=== PATIENT | male | born 1980 | race Caucasian/White ===

== ENCOUNTER 2017-10-17 07:33 | Emergency (ER) | payer BC, SELFPAY ==
[2017-10-17 07:35] VITALS: BP 153/83; PULSE 83; RESP 14; TEMP 36.9; O2SAT 99; BMI 29.5
--- NOTE | 2017-10-17 08:16 | ED_ITS ---
HPI - Ear Problem General Chief complaint: Ear Stated complaint: EAR DAMAGE Source: patient Mode of arrival: ambulatory Limitations: no limitations History of Present Illness HPI Narrative: Patient presents to the emergency department today with a chief complaint of right ear pain after insertion of a Q-tip. He has decreased ability to hear and had some drainage of blood. He denies any fever, chills nor nausea or vomiting. MD Complaint: ear pain, ear discharge and decreased hearing Location: right ear Duration: constant Severity: moderate Exacerbating factors: nothing Context: recent illness Discharge from ear: yes - bloody Related Data Home Medications Medication Instructions Recorded Confirmed [Ibuprofen] 800 mg PO PRN PRN #0 06/14/17 10/17/17 Previous Rx's Medication Instructions Recorded lisinopril 20 mg PO QDAY #90 tab 06/14/17 hydrocodone-acetaminophen 1 tab PO Q4-6H PRN #10 tab 10/17/17 Allergies Allergy/AdvReac Type Severity Reaction Status Date / Time No Known Drug Allergies Allergy Verified 10/17/17 07:37 Review of Systems Review of Systems All systems reviewed & are unremarkable except as noted in HPI and below Constitutional Denies chills, Denies fever(s), Denies lethargy and Denies weakness Eyes Denies change in vision, Denies eye discharge, Denies irritation and Denies loss of vision ENT Ears, Nose, Mouth, and Throat: Reports ear discharge and Reports otalgia Cardiovascular Denies chest pain, Denies irregular heart rhythm, Denies lightheadedness, Denies palpitations and Denies orthopnea Gastrointestinal Gastrointestinal: Denies abdominal pain, Denies change in bowel habits, Denies diarrhea, Denies nausea and Denies vomiting Neurologic Denies loss of vision and Denies weakness Endocrine Denies palpitations Hematologic/Lymphatic Denies easy bruising [facility] Family History Brother Essential hypertension Type 2 diabetes mellitus Mother Essential hypertension Social History Smoking Status: Never smoker Exam Const General: cooperative and well developed Nutritional Appearance: well nourished Orientation: alert, awake, oriented x3 and not confused HENMT Head: normal to inspection Ears: TM normal on the left, EAC abnormal (blood in canal) and unable to visualize TM Resp Effort & Inspection: normal respiratory effort, able to speak in complete sentences, no respiratory distress and no use of accessory muscles Auscultation: clear to auscultation bilaterally, no rales, no rhonchi and no wheezes Course Last Vital Signs Temp 98.4 F 10/17/17 07:35 Pulse 83 10/17/17 07:35 Resp 14 10/17/17 07:35 BP 153/83 H 10/17/17 07:35 Pulse Ox 99 10/17/17 07:35 Discharge Plan Departure Patient Disposition: Home, Self-Care Clinical Impression: Ruptured tympanic membrane Instructions: DI for Tympanic Membrane Perforation-Adult Activity Restrictions/Additional Instructions: Do not insert anything in your ear Call ENT today to schedule an appointment, be sure to tell them you were seen in the Emergency Department and Dr. Frank wants you to be seen for a TRAUMATIC RUPTURED EAR DRUM You have been prescribed narcotic medications. While on these medications you cannot drive or operate heavy machinery. Additionally you cannot sign legal documents or perform any duties such as this. 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 Please understand that we cannot provide further refills of narcotics or controlled substances through the ED and your pain management will need to be through your Primary Care Provider Prescriptions: New hydrocodone-acetaminophen 5-325 mg tablet 1 tab PO Q4-6H PRN (Reason: pain) Qty: 10 RF: 0 No Action [Ibuprofen] 800 mg PO PRN PRN (Reason: Pain (Scale Score 4-6)) Qty: 0 RF: 0 lisinopril 20 MG tablet 20 mg PO QDAY Qty: 90 RF: 3 Referrals: Tamir Varela MD [Physician] - (Seen in ED on morning of 10/17 for traumatic rupture of R TM after insertion of Q tip. Blood in canal, cannot visualize canal lac or actual TM due to blood. )
== END 2017-10-17 08:26 | disposition home or self-care (01) ==
PROVIDERS: Emergency Provider Emergency Medicine; Family Provider Family Medicine; PCP Family Medicine
DX: H72.90 Unspecified perforation of tympanic membrane, unspecified ear (principal)
CPT/HCPCS: 99282

== ENCOUNTER 2018-03-14 04:41 | Emergency (ER) | payer OTHER, SELFPAY ==
[2018-03-14 04:51] VITALS: BP 153/111; PULSE 76; RESP 18; TEMP 36.8; O2SAT 99; BMI 27.1
--- NOTE | 2018-03-14 04:51 | DI.US.S_ITS ---
PROCEDURE: US ABDOMEN COMPLETE INDICATIONS: epigastric pain TECHNIQUE: Real-time scanning was performed of the abdominal and retroperitoneal organs, with image documentation. COMPARISON: [facility], CT, CHEST/ABD/PEL WITH CONTRAST, 08/07/2016, 11:56. FINDINGS: Liver: Liver is diffusely increased in echogenicity. No focal hepatic abnormalities identified. Normal hepatic size. Gallbladder: No gallstones identified. Normal gallbladder wall. No pericholecystic fluid. Negative sonographic Burroughs sign. Biliary ducts: Intrahepatic bile ducts are non-dilated. Extrahepatic bile duct caliber measures 6.2 mm. Normal is 6-7 mm or less in diameter, or 10 mm or less post-cholecystectomy. Pancreas: Visualized portions of the pancreas are sonographically normal. Spleen: Spleen is normal in size and homogeneous in echotexture. Kidneys: Kidneys are normal in size and echotexture. Right kidney measures 11.1 cm long; left kidney measures 10.7 cm long. No hydronephrosis or nephrolithiasis. No solid masses. Aorta: Visualized aorta is normal in caliber at less than 3 cm. Iliacs: Proximal common iliac arteries are normal in caliber at less than 2.5 cm. IVC: Intrahepatic inferior vena cava is patent. Miscellaneous: No free abdominal fluid. IMPRESSION: 1. Increased hepatic echogenicity noted possibly related to hepatic steatosis but other sources of hepatocellular disease cannot be excluded. Recommend clinical correlation. 2. Extrahepatic bile duct upper limits of normal in caliber. Note: These findings are concordant with the preliminary interpretation. Dictated by: Doron LOPEZ Interpreted: Anuradha Mcgarry MD on 03/14/2018 at 8:51 Approved by: Anuradha Mcgarry M.D. on 03/14/2018 at 15:37
--- NOTE | 2018-03-14 05:00 | ED_ITS ---
HPI - Abdominal Pain General Chief Complaint: Abdominal Pain Stated Complaint: Abd Pain Time Seen by Provider: 03/14/18 04:42 Source: patient Mode of arrival: ambulatory Limitations: no limitations History of Present Illness HPI narrative: 37-year-old daily drinker presents with a chief complaint of epigastric pain and persistent vomiting for the past day or 2. He states that during the week he drinks at least a few beers on the weekend may drink up to a case of beer daily. He denies any coffee-ground emesis or bright red vomit. He denies any dark and tarry stools. He states his pain is worse when he eats or drinks. He denies any radiation of his pain. He states this has happened about 4 times in the past week or 2. He states that he has had withdrawal type symptoms in the past when not drinking for upwards of 24 hours. He has become a bit dizzy and lightheaded. His last drink was about 12 hr ago. MD complaint: abdominal pain Onset (ago): day(s) Pain Consistency: constant Location: epigastric Severity: moderate Quality: cramping and aching Radiation: none Relieving factors: nothing Exacerbating factors: eating Context: history of similar episodes Associated symptoms: nausea and vomiting Related Data Home Medications Medication Instructions Recorded Confirmed [Ibuprofen] 800 mg PO PRN PRN #0 06/14/17 10/17/17 Previous Rx's Medication Instructions Recorded lisinopril 20 mg PO QDAY #90 tab 06/14/17 hydrocodone-acetaminophen 1 tab PO Q4-6H PRN #10 tab 10/17/17 chlordiazepoxide HCl See Label Instructions .ROUTE 03/14/18 .COMPLEX #32 cap ondansetron [Zofran ODT] 4 mg PO Q6H PRN #14 tab 03/14/18 pantoprazole [Protonix] 40 mg PO DAILY #30 tab 03/14/18 Allergies Allergy/AdvReac Type Severity Reaction Status Date / Time No Known Drug Allergies Allergy Verified 10/17/17 07:37 Review of Systems Review of Systems All systems reviewed & are unremarkable except as noted in HPI and below Constitutional Denies chills, Denies fever(s), Denies lethargy and Denies weakness Eyes Denies change in vision, Denies eye discharge, Denies irritation and Denies loss of vision ENT Ears, Nose, Mouth, and Throat: Denies change in voice, Denies neck pain and Denies sore throat Cardiovascular Denies chest pain, Denies irregular heart rhythm, Denies lightheadedness, Denies palpitations, Denies dyspnea, Denies dyspnea on exertion and Denies orthopnea Respiratory Denies cough, Denies dyspnea, Denies dyspnea on exertion and Denies wheezing Gastrointestinal Gastrointestinal: Reports abdominal pain, Denies change in bowel habits, Denies diarrhea, Reports nausea and Reports vomiting Genitourinary Denies hematuria, Denies flank pain, Denies urinary incontinence and Denies urinary urgency Musculoskeletal Denies neck pain Integumentary/Breasts Denies pruritus, Denies erythema, Denies rash and Denies wounds Neurologic Denies confusion, Denies loss of vision and Denies weakness Psychiatric Denies anxiety, Denies confusion, Denies depression, Denies homicidal ideation and Denies suicidal ideation Endocrine Denies palpitations Hematologic/Lymphatic Denies easy bruising Allergic/Immunologic Denies wheezing PFSH Family History Brother Essential hypertension Type 2 diabetes mellitus Mother Essential hypertension Social History Smoking Status: Never smoker Exam Narrative Exam Narrative: 37-year-old male, obviously uncomfortable Initial Vital Signs Initial Vital Signs: Vital Signs Temperature 98.2 F 03/14/18 04:51 Pulse Rate 76 03/14/18 04:51 Respiratory Rate 18 03/14/18 04:51 Blood Pressure 153/111 H 03/14/18 04:51 Pulse Oximetry 99 03/14/18 04:51 Const General: cooperative, well developed and acute distress Nutritional Appearance: well nourished Orientation: alert, awake, oriented x3 and not confused [facility] Head: normocephalic and atraumatic Ears: external ears normal and TM's normal bilaterally Nose: external nose normal and No nasal discharge Face and sinus: sinuses nontender, face symmetric, no sinus tenderness and No dry mucous membranes Mouth: oral mucosae normal and moist mucous membranes Teeth and gingiva: dentition normal Throat: tonsils normal and uvula midline Eyes General: appearance normal, both eyes and all related structures Eyelids: eyelids normal Conjunctivae: conjunctivae normal Sclera: sclerae normal Pupils: PERRL EOM: EOM intact bilaterally Neck Neck: normal visual inspection, trachea midline, No lymphadenopathy, No midline deformity and No JVD Lymphatic: No lymphedema Chest Chest: normal inspection of the chest Resp Effort & Inspection: normal respiratory effort, able to speak in complete sentences, no respiratory distress and no use of accessory muscles Auscultation: clear to auscultation bilaterally, no rales, no rhonchi and no wheezes Cardio Rate: regular rate Rhythm: regular rhythm Heart Sounds: no click, no gallops, no murmurs and no rubs Pulses: normal peripheral pulses GI Inspection: non-distended Palpation: soft, no hepatosplenomegaly, No guarding, No pulsatile mass and tender Auscultation: normal bowel sounds Back/Spine/Pelvis Back: No CVA tenderness Cervical Spine: cervical ROM normal and No pain with cervical ROM Thoracic/Lumbar Spine: thoracic and lumbar spine normal to inspection Skin General: no rashes or lesions noted, No jaundice and No petechiae Neuro General: alert, oriented x3, gait normal and no focal motor deficits Speech: speech normal Extrem General: full ROM, no clubbing, cyanosis or edema, no pedal edema and no calf tenderness Psych Appearance: well kempt Mental Status: mental status grossly normal Attitude: cooperative Thought Content: normal and suicidality Judgment: judgment good Course Orders Ordered: Discontinued Medications Hydromorphone HCl (Dilaudid) 0.5 mg IV NOW ONE Stop: 03/14/18 04:51 Last Admin: 03/14/18 05:04 Dose: 0.5 mg Sodium Chloride (Normal Saline 0.9%) 500 mls @ 1,000 mls/hr IV BOLUS ONE Stop: 03/14/18 05:19 Last Admin: 03/14/18 06:52 Dose: Sodium Chloride (Normal Saline 0.9%) 1,000 mls @ 1,000 mls/hr IV BOLUS ONE Stop: 03/14/18 06:12 Last Infusion: 03/14/18 06:52 Dose: 0 mls/hr Admin: 03/14/18 05:16 Dose: 1,000 mls/hr Ondansetron HCl (Zofran) 4 mg IV NOW ONE Stop: 03/14/18 04:51 Last Admin: 03/14/18 05:04 Dose: 4 mg Pantoprazole Sodium (Protonix) 40 mg IV NOW ONE Stop: 03/14/18 04:51 Last Admin: 03/14/18 05:02 Dose: 40 mg Vital Signs - 8 hr 03/14/18 04:51 Temperature 98.2 F Pulse Rate 76 Respiratory Rate 18 Blood Pressure 153/111 H Pulse Oximetry 99 MDM - Abdominal Pain Differential Diagnosis Differential diagnosis: Likely abdominal pain and gastroenteritis Medical Records Attestation: I reviewed the patient's medical records. Lab Data Attestation: I reviewed the patient's lab results. Result diagrams: 03/14/18 04:55 03/14/18 04:55 Lab Results 03/14/18 03/14/18 03/14/18 Range/Units 04:55 04:55 04:55 WBC 6.8 (4.5-11.0) X10^3/uL RBC 5.29 (4.5-5.9) X10^6/uL Hgb 16.7 (13.5-17.5) g/dL Hct 49.2 (41-53) % MCV 92.9 (80-100) fL MCH 31.6 (26-34) PG MCHC 34.0 (30-36) % RDW 13.3 (11.6-14.8) % Plt Count 255 (150-400) X10^3/uL Neut % (Auto) 54.5 (50-75) % Lymph % (Auto) 29.2 (25-40) % [place] % (Auto) 13.0 (3-14) % Eos % (Auto) 2.1 (2-4) % Baso % (Auto) 1.2 (0-2) % Neut # (Auto) 3700 (1229-6530) /uL PT 12.4 (10.1-12.7) SECONDS INR 1.1 (0.9-1.3) Sodium 141 (137-145) mmol/L Potassium 4.2 (3.4-5.1) mmol/L Chloride 102 (98-107) mmol/L Carbon Dioxide 29 (22-32) mmol/L BUN 13 (9-20) mg/dL Creatinine 1.00 (0.66-1.25) mg/dL Estimated GFR > 60.0 (>60) mL/min BUN/Creatinine Ratio 13.0 (6-22) Glucose 107 H (70-100) mg/dL Calcium 9.6 (8.4-10.2) mg/dL Total Bilirubin 1.2 (0.2-1.3) mg/dL AST 41 (17-59) IU/L ALT 27 (21-72) IU/L Alkaline Phosphatase 58 (38-126) U/L Total Protein 7.5 (6.3-8.2) g/dL Albumin 4.7 (3.5-5.0) g/dL Globulin 2.8 (1.7-4.1) g/dL Albumin/Globulin Ratio 1.7 (1.0-2.8) Lipase 170 (23-300) U/L Ethyl Alcohol mg/dL 03/14/18 Range/Units 04:55 WBC (4.5-11.0) X10^3/uL RBC (4.5-5.9) X10^6/uL Hgb (13.5-17.5) g/dL Hct (41-53) % MCV (80-100) fL MCH (26-34) PG MCHC (30-36) % RDW (11.6-14.8) % Plt Count (150-400) X10^3/uL Neut % (Auto) (50-75) % Lymph % (Auto) (25-40) % [place] % (Auto) (3-14) % Eos % (Auto) (2-4) % Baso % (Auto) (0-2) % Neut # (Auto) (2292-9600) /uL PT (10.1-12.7) SECONDS INR (0.9-1.3) Sodium (137-145) mmol/L Potassium (3.4-5.1) mmol/L Chloride (98-107) mmol/L Carbon Dioxide (22-32) mmol/L BUN (9-20) mg/dL Creatinine (0.66-1.25) mg/dL Estimated GFR (>60) mL/min BUN/Creatinine Ratio (6-22) Glucose (70-100) mg/dL Calcium (8.4-10.2) mg/dL Total Bilirubin (0.2-1.3) mg/dL AST (17-59) IU/L ALT (21-72) IU/L Alkaline Phosphatase (38-126) U/L Total Protein (6.3-8.2) g/dL Albumin (3.5-5.0) g/dL Globulin (1.7-4.1) g/dL Albumin/Globulin Ratio (1.0-2.8) Lipase (23-300) U/L Ethyl Alcohol < 10 mg/dL Point of care testing: Urine Dip Bedside Urine Glucose Negative Bedside Urine Bilirubin - Negative Bedside Urine Ketone - Negative Urine Specific Blanket 1.020 Bedside Urine Occult Blood - Negative Bedside Urine pH 6.0 Bedside Urine Protein - Negative Bedside Urine Urobilinogen - Negative Bedside Urine Nitrite - Negative Bedside Urine Leukocytes - Negative Esterase Discharge Plan Departure Patient Disposition: Home Clinical Impression: Abdominal pain, acute, epigastric Discharge Date/Time: 03/14/18 06:55 Interventions: ED Discharge Assessment Last Done: 03/14/18 06:54 Instructions: DI for Epigastric Pain Activity Restrictions/Additional Instructions: *You have been diagnosed with [acute epigastric pain, likely a consequence of alcohol abuse ] *What to do: *Take medications as directed *Follow up with your primary care provider in 2-3 days, call for an appointment. Let them know you were seen in the Emergency Department and that we ask that you be seen in follow up *Return to ER if you should have any new, worsening or concerning symptoms 1. Drink plenty of fluids with frequent small sips. 2. For the next 24 hours a clear liquid diet is advised. After that please employ a brat diet which would include bananas, rice, apples, toast. 3. Please take medications as directed. 4. Please follow-up with your doctor in the next 1-2 days. Call the office for an appointment. 5. Please return to the emergency Department for any worsening or persistent symptoms, such as increasing pain or fever. Prescriptions: New ondansetron [Zofran ODT] 4 mg tablet,disintegrating 4 mg PO Q6H PRN (Reason: nausea and vomiting) Qty: 14 RF: 0 chlordiazepoxide HCl 25 mg capsule See Label Instructions .ROUTE .COMPLEX Qty: 32 RF: 0 pantoprazole [Protonix] 40 mg tablet,delayed release (DR/EC) 40 mg PO DAILY Qty: 30 RF: 0 No Action [Ibuprofen] 800 mg PO PRN PRN (Reason: Pain (Scale Score 4-6)) Qty: 0 RF: 0 lisinopril 20 MG tablet 20 mg PO QDAY Qty: 90 RF: 3 hydrocodone-acetaminophen 5-325 mg tablet 1 tab PO Q4-6H PRN (Reason: pain) Qty: 10 RF: 0
[2018-03-14 05:02] VITALS: BP 151/89; PULSE 77; RESP 20; O2SAT 98
[2018-03-14] MEDS: PANTOPRAZOLE 40 MG VIAL IV (05:02)
[2018-03-14] MEDS: HYDROMORPHONE 1 MG INJ 0.5 MG IV (05:04)
[2018-03-14] MEDS: ONDANSETRON 4 MG/2 ML INJ IV (05:04)
[2018-03-14 05:05] LABS: Add Manual Diff / Slide Review NO; Basophils Percent Auto 1.2 % (0-2); Eosinophils Percent Auto 2.1 % (2-4); Hematocrit 49.2 % (41-53); Hemoglobin 16.7 g/dL (13.5-17.5); Lymphocytes Percent Auto 29.2 % (25-40); Mean Corpuscular Hemoglobin 31.6 PG (26-34); Mean Corpuscular Volume 92.9 fL (80-100); Neutrophils Absolute Auto 3700 /uL (3000-5900); Neutrophils Percent Auto 54.5 % (50-75); Platelet Count 255 X10^3/uL (150-400); Red Blood Cell Count 5.29 X10^6/uL (4.5-5.9); Red Cell Distribution Width 13.3 % (11.6-14.8); White Blood Cell Count 6.8 X10^3/uL (4.5-11.0)
[2018-03-14 05:08] LABS: INR 1.1 (0.9-1.3); Prothrombin Time 12.4 SECONDS (10.1-12.7)
[2018-03-14 05:13] LABS: Alanine Aminotransferase 27 IU/L (21-72); Albumin 4.7 g/dL (3.5-5.0); Albumin Globulin Ratio 1.7 (1.0-2.8); Alkaline Phosphatase 58 U/L (38-126); Aspartate Aminotransferase 41 IU/L (17-59); Bilirubin Total 1.2 mg/dL (0.2-1.3); Blood Urea Nitrogen 13 mg/dL (9-20); Calcium 9.6 mg/dL (8.4-10.2); Carbon Dioxide 29 mmol/L (22-32); Chloride 102 mmol/L (98-107); Estimated Glomerular Filt Rate > 60.0 mL/min (>60); Globulin 2.8 g/dL (1.7-4.1); Glucose 107 mg/dL (70-100); HEMOLYSIS < 15 (0-50); Lipase 170 U/L (23-300); Potassium 4.2 mmol/L (3.4-5.1); Sodium 141 mmol/L (137-145); Total Protein 7.5 g/dL (6.3-8.2)
[2018-03-14 05:14] LABS: Ethanol (ETOH) < 10 mg/dL
[2018-03-14] MEDS: SODIUM CHLORIDE 0.9% 1,000 ML 1000 ML IV (05:16)
[2018-03-14 06:54] VITALS: BP 154/91; PULSE 80; RESP 18; TEMP 37.1; O2SAT 96
--- NOTE | 2018-03-16 16:15 | PC.NURSE ---
Gave follow-up phone call. pt reports pain has improved and able to eat normally. Denies any further questions at this time. Denies any further need for improvement about his visit.
== END 2018-03-14 06:55 | disposition home or self-care (01) ==
PROVIDERS: Emergency Provider Emergency Medicine; Family Provider Family Medicine; PCP Family Medicine
DX: R10.13 Epigastric pain (principal)
CPT/HCPCS: 36591; 76700; 80053; 80320; 81003; 83690; 85025; 85610; 93005; 96361; 96374; 96375; 99283; 99285; C9113; J1170; J2405